=== PATIENT | female | born 1965 | race Caucasian/White ===

== ENCOUNTER 2016-09-24 16:10 | Inpatient (IN) | payer OTHER ==
[~2016-09-24] VITALS: Ht 160 cm; Wt 78.1 kg
[2016-10-20] MEDS ORDERED: BUPIVACAINE LIPOSOME PF 1.3% 20 ML VIAL ONE (09:00)
[2016-10-20 10:56] VITALS: BP 142/91; PULSE 74; RESP 16; TEMP 97.8; O2SAT 99
[2016-10-20] MEDS ORDERED: VANCOMYCIN 1000 MG/NS 250 ML (for <70 kg) IV SCH ×2 (11:00)
[2016-10-20] MEDS ORDERED: CHLORHEXIDINE GLUCONATE 2 % 1 PACK (2 CLOTHS) TOPICAL PRN (11:00)
[2016-10-20] MEDS ORDERED: DEXAMETHASONE SOD PHOS 20 MG/5 ML VIAL IV ONE (11:00)
[2016-10-20] MEDS ORDERED: TRANEXAMIC ACID INJ 781 MG in SODIUM CHLORIDE 0.9% INJ 100 ML IV SCH ×2 (11:00→16:00)
[2016-10-20] MEDS ORDERED: SODIUM CHLORID 0.9% 500 ML IV PRN (11:00)
[2016-10-20] MEDS ORDERED: METOPROLOL TARTRATE 25 MG TAB PO PRN (11:00)
[2016-10-20] MEDS ORDERED: LACTATED RINGER'S 1000 ML IV PRN (11:00)
[2016-10-20] MEDS ORDERED: INSULIN HUMAN REGULAR 1,000 UNITS/10 ML VIAL SQ PRN (11:00)
[2016-10-20] MEDS ORDERED: POVIDONE IODINE 7.5% SCRUB 118 ML BOTTLE TOPICAL SCH (11:00)
[2016-10-20] MEDS ORDERED: POVIDONE IODINE 5% (ANTISEPSIS KIT) 4 APPLICATIONS EACH NARE PRN (11:00)
[2016-10-20] MEDS ORDERED: ceFAZolin 2 GM PREMIX 50 ML IV SCH (11:00)
[2016-10-20] MEDS ORDERED: ROPIVACAINE PERI-ARTICULAR INJECTION. P-ARTICULR SCH ×5 (11:00)
[2016-10-20] MEDS ORDERED: GENTAMICIN SULFATE 80 MG/2 ML VIAL ONE (11:35)
[2016-10-20] MEDS ORDERED: LACTATED RINGER'S 1000 ML INJ 1,000 ML IV ONE (12:00)
[2016-10-20] MEDS ORDERED: PROPOFOL 200 MG/20 ML AMP IV ONE (12:00)
[2016-10-20] MEDS ORDERED: ONDANSETRON HCL 4 MG/2 ML VIAL IV PUSH ONE ×2 (12:00)
--- NOTE | 2016-10-20 12:10 | HHI.DCPOC ---
Discharge Care Plan Diagnosis: (1) Primary localized osteoarthrosis, lower leg (2) Status post total knee replacement, right Your Health Problems Are: Difficulty with ADL Goals to Promote Your Health * To prevent worsening of your condition and complications * To maintain your health at the optimal level Directions to Meet Your Goals Take your medications as prescribed Follow your dietary instruction Follow activity as directed Keep your appointments as scheduled Take your immunizations and boosters as scheduled If your symptoms worsen call your PCP, if no PCP go to Urgent Care Center or Emergency Room Smoking is Dangerous to Your Health. Avoid second hand smoke Call the 24-hour hour crisis hotline for domestic abuse at Braydon Macias Oct 20, 2016 12:10
--- NOTE | 2016-10-20 12:11 | HHI.FF ---
Face to Face Verification Diagnosis: (1) Primary localized osteoarthrosis, lower leg (2) Status post total knee replacement, right Physical Therapy Gait training, Transfer training, bed to chair Knee: Total knee Right LE Weight Bearing: WB as tolerated Right LE Range of Motion: Active ROM Nursing Nursing: Sidra teaching, Dressing changes Dressing Changes: Daily dressing change I have seen patient Wendy Shine on 10/20/16. My clinical findings support the need for the requested home health care services because: Limited ability to care for self High risk of falls I certify that my clinical findings support that this patient is homebound because: Post-op weakness Unsteady gait/balance Braydon Macias Oct 20, 2016 12:11
[2016-10-20] MEDS ORDERED: CPMMACHINE (12:12)
[2016-10-20] MEDS ORDERED: COMMODE 3-IN-11 MIS (12:12)
[2016-10-20] MEDS ORDERED: WALKER WHEELS/F1 MIS (12:12)
[2016-10-20] MEDS ORDERED: diphenhydrAMINE HCL 50 MG/ML VIAL ONE (12:47)
[2016-10-20] MEDS ORDERED: FAMOTIDINE 20 MG/2 ML VIAL ONE (13:08)
[2016-10-20] MEDS ORDERED: MIDAZOLAM HCL 2 MG/2 ML VIAL ONE (13:09)
--- NOTE | 2016-10-20 15:21 | PD.OP ---
cc: Abhishek Cobb MD Operative Report Date of Surgery: Oct 20, 2016 Preoperative Diagnosis: Right knee severe osteoarthritis Postoperative Diagnosis: Same Procedure: Right total knee arthroplasty Anesthesia: Adductor canal block and general Surgeon: Abhishek Cobb Barrel Centerer(s): CARMELO Nation The surgical procedure was assisted by my Advanced Registered Nurse Practitioner. My FUNCTIONAL MANAGER presence was necessary throughout this case for the manipulation and positioning of the surgical extremity. My FUNCTIONAL MANAGER was assisting me throughout the duration of this procedure. The skill set of an Advance Registered Nurse Practitioner was medically necessary to complete this procedure. During the surgical case, the phlebotomy services technician was working at the back table and the Advance Registered Nurse Practitioner was directly assisting me. Operation and Findings: IMPLANTS: DePuy Attune: Patella: size 35. Femur, posterior stabilized size 6 narrow. Tibia, rotating platform size 4. Tibial insert, rotating platform, posterior stabilized size 5 mm thickness. ESTIMATED BLOOD LOSS: 150 cc TOURNIQUET TIME: 46 minutes at 250 mmHg pressure. JUSTIFICATION FOR PROCEDURE: The patient has end-stage osteoarthritis to the knee. There is an attached conservative measures pathway form in the chart that describes the nonoperative measures that were undertaken prior to consideration of surgical management. The patient understood the risks and benefits of surgical management. See my office notes for further details PROCEDURE: The patient was brought back to the operative theatre. Adequate anesthesia was obtained. The patient received intravenous Ancef and vancomycin, preoperatively. Note that when the patient was given the vancomycin preoperatively she received a little more than half of the dose. She developed a red raised rash on the side of the neck. She developed some itching of the scalp. The medicine was stopped and she was given intravenous Benadryl. She had resolution of the symptoms. The lower extremity was prepped and draped in the usual sterile fashion.The leg was exsanguinated, the tourniquet was raised. A standard anterior incision was performed followed by medial parapatellar arthrotomy was performed. She had a large clear yellowish joint effusion. End- stage arthritis was identified, especially of the lateral tibial plateau and lateral femoral condyle. Osteotomy of the patella was performed. We drilled holes for the patella. We trialed the patella component. We placed an intramedullary guide into the distal femur. We ultimately resected 14 mm off of the distal femur in 5 degrees of valgus. 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 The remnants of the ACL and PCL were resected. Osteotomy of the proximal tibia was performed, resecting 5 mm off of the medial side. This was done with 3 degrees of posterior slope using an extramedullary guide. The distal end of the guide was placed in the mid aspect of the ankle. The femur was sized, and four chamfer cuts were completed in 3 of external rotation. We then cut the central box in the distal femur to replace the PCL. We resected the remnants of the menisci and removed osteophytes off of the femur and tibia. We then trialed the knee. We punched the tibia for the keel, and then used standard technique to cement in components. Excess cement was removed. We trialed the knee again and the final polyethylene thickness was chosen to provide extension to 0 degrees, and flexion of 140 degrees to gravity. The ligaments were appropriately balanced. Lateral release was necessary to obtain excellent patellofemoral tracking. This included release of the lateral capsule as well. The tourniquet was released and adequate hemostasis was obtained. An intra-articular injection of a ropivacaine cocktail was injected. The posterior knee was inspected for excess cement, which was removed. The final polyethylene was put into position after thorough irrigation. We then closed deep fascia with a #2 Stratafix followed by skin with 2-0 Vicryl followed by cisco. Postop plan is to weight-bear as tolerated. DVT prophylaxis will be performed with Guy, DORA ying, early mobilization, and Lovenox followed by aspirin. Abhishek Cobb MD Oct 20, 2016 15:21
[2016-10-20] MEDS ORDERED: NORC5TAB PO (15:23)
[2016-10-20] MEDS ORDERED: ASPI325T PO (15:23)
[2016-10-20] MEDS ORDERED: ENOX40P SQ (15:23)
[2016-10-20] MEDS ORDERED: diphenhydrAMINE HCL 50 MG/ML VIAL IV PRN (15:30)
[2016-10-20] MEDS ORDERED: ALUMINUM/MAGNESIUM/SIMETH 30 ML CUP PO PRN (15:30)
[2016-10-20] MEDS ORDERED: BISACODYL 10 MG SUPP PR PRN (15:30)
[2016-10-20] MEDS ORDERED: ACETAMINOPHEN/HYDROcodone 325 MG/5 MG TAB PO PRN ×2 (15:30)
[2016-10-20] MEDS ORDERED: NALOXONE HCL 0.4 MG/ML AMP IV PRN (15:30)
[2016-10-20] MEDS ORDERED: SODIUM CHLORIDE 0.9% FLUSH 5 ML FLUSH IVF PRN (15:30)
[2016-10-20] MEDS ORDERED: MAGNESIUM HYDROXIDE SUSP 30 ML CUP PO PRN (15:30)
[2016-10-20] MEDS ORDERED: ZOLPIDEM TARTRATE 5 MG TAB PO PRN (15:30)
[2016-10-20] MEDS ORDERED: ONDANSETRON HCL 4 MG/2 ML VIAL IVP PRN (15:30)
[2016-10-20] MEDS ORDERED: Post-op Orders (for Pharmacy) MISC XX ONE (15:30)
[2016-10-20] MEDS ORDERED: fentaNYL CITRATE 250 MCG/5 ML AMP ONE ×2 (15:51→15:52)
--- NOTE | 2016-10-20 16:09 | RADRPT ---
EXAM DATE/TIME: 10/20/2016 15:52 [facility] COMPARISON: No previous studies available for comparison. INDICATIONS : Post op right knee. MEDICAL HISTORY : None. SURGICAL HISTORY : Total knee replacement, right. ENCOUNTER: Initial ACUITY: 1 day PAIN SCORE: Non-responsive. LOCATION: Right knee. FINDINGS: AP and lateral views of the knee following arthroplasty reveals a prosthesis in anatomic alignment. F racture is not appreciated. CONCLUSION: Status post total knee arthroplasty. J Luis Melton MD FACR Board Certified Radiologist. This report was verified electronically.
[2016-10-20] MEDS: SODIUM CHLOR 0.9% 1000 ML INJ 1,000 ML IV SCH (16:10)
[2016-10-20] MEDS ORDERED: DO NOT ADM ANY ANTICOAGULANT DRUGS PRN (16:30)
[2016-10-20] MEDS ORDERED: *morphine SULFATE 8 MG/ML PERIprocedure ONLY ONE ×2 (16:57→17:29)
[2016-10-20] MEDS: SODIUM CHLORIDE 0.9% FLUSH 5 ML FLUSH IVF SCH (20:27)
[2016-10-20 22:00] VITALS: BP 136/74; PULSE 100; RESP 18; TEMP 97.7; O2SAT 95
[2016-10-20] MEDS: MORPHINE SULFATE 4 MG/ML INJ IV PUSH PRN (23:11)
[2016-10-21 00:21] VITALS: BP 117/63; PULSE 91; RESP 18; TEMP 98.4; O2SAT 95
[2016-10-21 03:31] VITALS: BP 115/56; PULSE 97; RESP 18; TEMP 97.5; O2SAT 99
[2016-10-21] MEDS: SODIUM CHLOR 0.9% 1000 ML INJ 1,000 ML IV SCH ×2 (03:32→09:34)
[2016-10-21] MEDS: MORPHINE SULFATE 4 MG/ML INJ IV PUSH PRN (03:59)
[2016-10-21 07:16] LABS: HEMATOCRIT 29.5 % (35.0-46.0); MEAN CELL VOLUME 79.1 FL (80.0-100.0); MEAN CORPUSCULAR HEMOGLOBIN 27.9 PG (27.0-34.0); MEAN CORPUSCULAR HGB CONC 35.3 % (32.0-36.0); PLATELET COUNT 231 TH/MM3 (150-450); RED BLOOD COUNT 3.74 MIL/MM3 (4.00-5.30); RED CELL DISTRIBUTION WIDTH 13.1 % (11.6-17.2); REVIEW FLAG FINAL; WHITE BLOOD COUNT 17.8 TH/MM3 (4.0-11.0)
[2016-10-21] MEDS ORDERED: DEXAMETHASONE SOD PHOS 20 MG/5 ML VIAL IV ONE (07:45)
[2016-10-21] MEDS: SODIUM CHLORIDE 0.9% FLUSH 5 ML FLUSH IVF SCH (08:04)
[2016-10-21 10:28] VITALS: O2SAT 94
[2016-10-21 12:00] VITALS: BP_SYST 100; BP_SYST 113; BP_DIAS 63; BP_DIAS 65; PULSE 16; PULSE 94; RESP 16; TEMP 96.7; TEMP 97.5; O2SAT 95; O2SAT 96
--- NOTE | 2016-10-21 12:14 | PD.ORT.PN ---
Subjective Post Op Day #: 1 Subjective Remarks Patient OOB resting in chair with minimal pain. Patient has had some dizziness when ambulatory. Patient states she does want to go home today if dizziness improves. Objective Vitals Vital Signs Date Time Temp Pulse Resp B/P Pulse Ox O2 Delivery O2 Flow Rate FiO2 10/21/16 10:28 94 21 10/21/16 03:31 97.5 97 18 115/56 99 10/21/16 00:21 98.4 91 18 117/63 95 10/20/16 23:15 18 10/20/16 22:00 97.7 100 18 136/74 95 10/20/16 21:00 85 15 112/65 100 Nasal Cannula 2 10/20/16 20:00 97.0 85 13 117/65 99 Nasal Cannula 2 10/20/16 19:00 83 19 121/69 99 Nasal Cannula 2 10/20/16 18:00 90 12 125/69 99 Nasal Cannula 2 10/20/16 17:00 82 13 140/76 100 Nasal Cannula 2 10/20/16 16:45 82 12 131/72 100 Nasal Cannula 2 10/20/16 16:30 80 14 144/75 100 Nasal Cannula 2 10/20/16 16:15 83 13 130/73 100 Nasal Cannula 2 10/20/16 16:00 84 16 128/64 99 Nasal Cannula 2 10/20/16 15:45 94 15 125/74 99 Nasal Cannula 2 10/20/16 15:41 98.2 92 13 128/68 98 Nasal Cannula 2 I/O 10/20/16 10/20/16 10/20/16 10/21/16 10/21/16 10/21/16 06:59 14:59 22:59 06:59 14:59 22:59 Intake Total 1640 ml 240 ml Output Total 1150 ml Balance 490 ml 240 ml Intake Oral 140 ml 240 ml Other 1500 ml Output Urine Total 1000 ml Estimated Blood Loss 150 ml # Voids 1 1 # Bowel Movements 0 0 Result Diagram: 10/21/16 0607 Imaging Last 24 hours Impressions Knee X-Ray 10/20/16 1516 Signed Impressions: Service Date/Time: Thursday, October 20, 2016 15:52 - CONCLUSION: Status post total knee arthroplasty. J Luis Melton MD Procedures Right TKA Objective Remarks The patient's dressing is changed with scant serosanguineous drainage. Incision is well approximated with surgical clips intact. No redness or s/s of infection. EHL/TA/G intact. 2+ pedal pulse. No calf swelling or tenderness. + SILT. Assessment & Plan Ortho Post Op Day #: 1 Problem List: Assessment and Plan POD #1: Right TKA 1. WBAT RLE 2. Lovenox followed by ASA for DVT prophylaxis 3. Ice to the right knee PRN 4. Stable for discharge home with home health today if she feels better and does not have dizziness. Braydon Macias Oct 21, 2016 12:14
[2016-10-21] MEDS ORDERED: ENOXAPARIN SODIUM 40 MG/0.4 ML SYRINGE SQ SCH (14:00)
[2016-10-21] MEDS ORDERED: DOCUSATE SODIUM 100 MG CAP PO SCH (21:00)
[2016-10-21] MEDS ORDERED: MULTIVITAMINS/MINERALS THERAPEUTIC TAB PO SCH (21:00)
--- NOTE | 2016-10-23 19:56 | HHI.DS ---
Discharge Summary Admission Date Oct 20, 2016 at 09:28 Discharge Date: Oct 21, 2016 Admitting Diagnosis Primary localized OA, lower leg Status post total knee replacement, right Diagnosis: (1) Primary localized osteoarthrosis, lower leg Diagnosis: Principal (2) Status post total knee replacement, right Diagnosis: Principal Procedures Right TKA Brief History This is a 51 year old female patient with severe OA of the right knee. CBC/BMP: 10/21/16 0607 Significant Findings Laboratory Tests Test 10/21/16 06:07 White Blood Count 17.8 TH/MM3 (4.0-11.0) Red Blood Count 3.74 MIL/MM3 (4.00-5.30) Hemoglobin 10.4 GM/DL (11.6-15.3) Hematocrit 29.5 % (35.0-46.0) Mean Corpuscular Volume 79.1 FL (80.0-100.0) PE at Discharge The patient's dressing is changed with scant serosanguineous drainage. Incision is well approximated with surgical clips intact. No redness or s/s of infection. EHL/TA/G intact. 2+ pedal pulse. No calf swelling or tenderness. + SILT. Hospital Course The patient was admitted to the hospital for severe right hip OA to have a right EDDIE. The patient's surgery went well with no complications. The patient is WBAT on the RLE. The patient is on a regular diet. The patient was discharged home on Lovenox followed by ASA for DVT prophylaxis. The patient was discharged home with home health and will f/u in the office with Dr. Cobb as previously arranged. Pt Condition on Discharge: Stable Discharge Disposition: Disch w/ Home Health Serv Discharge Instructions Diet Instructions: As Tolerated, No Restrictions Activities You Can Perform: Weight Bearing as Valentine Activities to Avoid: Strenuous Activity Follow up Referrals: Orthopedics with Abhishek Cobb MD New Medications: Aspirin (Aspirin) 325 Mg Tab 325 MG PO DAILY Start Aspirin after Lovenox is completed. Prevent Blood Clot # 30 Ref 0 TAB Commode 3-in-1 (Commode 3-in-1) 1 Mis Mis 1 EA .ROUTE DIRECTED #1 Ref 0 EA CPM-Continuous Passive Motion Machine (CPM-Continuous Passive Motion Machine) 1 Ea Device 1 EA .ROUTE DIRECTED #1 Ref 0 EA Enoxaparin Inj (Lovenox Inj) 40 Mg/0.4 Ml Syr 40 MG SQ DAILY Start Aspirin after Lovenox is completed. Blood Clot Prevention # 10 Ref 0 SYRINGE Hydrocodone-Acetaminophen ([place]) 5-325 mg Tab 1-2 TAB PO Q4H PRN PAIN #60 Ref 0 TAB Walker with Front Wheels (Walker with Front Wheels) 1 Mis Mis 1 EA .ROUTE DIRECTED #1 Ref 0 EA Braydon Macias Oct 23, 2016 19:56
== END 2016-10-21 17:59 | disposition home health service (06) | DRG 470 ==
LOC: HSDI 10-20 09:28 → N06B 10-20 22:21
PROVIDERS: ADMIT Orthopaedic Surgery; ATTEND Orthopaedic Surgery
PROC: 3E0T3CZ (ICD-10-PCS; 2016-10-20)
PROC: 0SRC0J9 Replacement of Right Knee Joint with Synthetic Substitute, Cemented, Open Approach (ICD-10-PCS; principal; 2016-10-20 13:10)
DX: M17.11 Unilateral primary osteoarthritis, right knee (principal)
CPT/HCPCS: 73560; 85027; 86850; 86900; 86901; 94150; C1776; C9290; J0171; J0690; J0735; J1100; J1200; J1580; J1650; J1885; J2250; J2270; J2405; J2795; J3010; J3370; J7030; J7050; J7120; L1830

== ENCOUNTER → 2016-10-04 | Outpatient (CLI) | payer OTHER ==
[~2016-10-04] MED LIST: ASPI325T PO; COMMODE 3-IN-11 MIS; CPMMACHINE; ENOX40P SQ; NORC5TAB PO; WALKER WHEELS/F1 MIS
[2016-10-04 11:56] LABS: AUTOMATED NEUTROPHIL # 5.1 TH/MM3 (1.8-7.7); BASOPHIL % 0.5 % (0.0-2.0); EOSINOPHIL # 0.1 TH/MM3 (0-0.4); EOSINOPHIL % 1.8 % (0.0-4.0); HEMATOCRIT 38.8 % (35.0-46.0); HEMO FLAGS DIFF FINAL; LYMPH % 24.1 % (9.0-44.0); LYMPHOCYTE # 1.9 TH/MM3 (1.0-4.8); MEAN CORPUSCULAR HEMOGLOBIN 27.7 PG (27.0-34.0); MONO % 7.5 % (0.0-8.0); NEUT % 66.1 % (16.0-70.0); PLATELET COUNT 245 TH/MM3 (150-450); RED BLOOD COUNT 4.91 MIL/MM3 (4.00-5.30); RED CELL DISTRIBUTION WIDTH 13.4 % (11.6-17.2); WHITE BLOOD COUNT 7.7 TH/MM3 (4.0-11.0)
[2016-10-04 12:09] LABS: APTT (PATIENT) 25.4 SEC (24.3-30.1); INTERNATIONAL NORMALIZED RATIO 0.9 RATIO; PROTHROMBIN TIME - PATIENT 10.3 SEC (9.8-11.6)
[2016-10-04 12:14] LABS: WESTERGREN SEDIMENTATION RATE 15 mm/hr (0-30)
--- NOTE | 2016-10-04 12:14 | RADRPT ---
EXAM DATE/TIME: 10/04/2016 12:07 [facility] COMPARISON: No previous studies available for comparison. INDICATIONS : Evaluate for pneumonia, pneumothorax and communicable diseases. Pre-op for knee surgery. MEDICAL HISTORY : None. SURGICAL HISTORY : None. ENCOUNTER: Initial ACUITY: 1 day PAIN SCORE: 0/10 LOCATION: Bilateral chest FINDINGS: PA and lateral views of the chest demonstrate the lungs to be symmetrically aerated without evidence of mass, infiltrate or effusion. The cardiomediastinal contours are unremarkable. Osseous structure s are intact. CONCLUSION: 1. No acute cardiopulmonary findings identified. Braydon Melton MD on October 04, 2016 at 12:11 Board Certified Radiologist. This report was verified electronically.
[2016-10-04 12:18] LABS: ANION GAP 5 MEQ/L (5-15); AST (GOT) 18 U/L (15-37); BLOOD UREA NITROGEN 22 MG/DL (7-18); CHLORIDE 106 MEQ/L (98-107); GLOMERULAR FILTRATION RATE 84 ML/MIN (>89); GLUCOSE,FASTING 80 MG/DL (74-99); SODIUM (NA) 141 MEQ/L (136-145)
[2016-10-04 12:23] LABS: ALKALINE PHOSPHATASE 97 U/L (45-117); ALT (GPT) 28 U/L (10-53); TOTAL BILIRUBIN ADULT 0.5 MG/DL (0.2-1.0)
[2016-10-04 12:23] LABS: BLOOD, URINE TRACE (NEG); COMMENT (UR) CULT NOT INDICATED; CULTURE IF INDICATED CULT NOT INDICATED; GLUCOSE,URINE NEG (NEG); KETONE, URINE NEG (NEG); MUCUS URINE FEW /lpf (OCC); NITRITE,URINE NEG (NEG); PH, URINE 5.5 (5.0-8.5); SQUAMOUS EPITHELIAL CELL URINE 1 /hpf (0-5); URINE COLOR YELLOW (YELLW/STRAW)
--- NOTE | 2016-10-05 17:11 | EKG ---
Date Performed: 10/04/2016 Time Performed: 11:49:50 PTAGE: 51 years EKG: Sinus rhythm NORMAL ECG NO PREVIOUS TRACING DOCTOR: Awa Herbert Interpretating Date/Time 10/05/2016 17:07:46
== END ==
LOC: CPRE 11:16
PROVIDERS: ATTEND Orthopaedic Surgery
DX: Z01.812 Encounter for preprocedural laboratory examination (principal); Z01.810 Encounter for preprocedural cardiovascular examination; Z01.811 Encounter for preprocedural respiratory examination; M17.11 Unilateral primary osteoarthritis, right knee; M25.50 Pain in unspecified joint; M79.609 Pain in unspecified limb; Z96.60 Presence of unspecified orthopedic joint implant
CPT/HCPCS: 36415; 71020; 80053; 81001; 85025; 85610; 85652; 85730; 93005